=== PATIENT | female | born 1950 | race Caucasian/White ===

== ENCOUNTER 2021-02-15 10:41 | Emergency (ER) | payer OTHER, MEDICARE, SELFPAY ==
[2021-02-15 11:01] VITALS: BP 146/113; PULSE 99; RESP 18; TEMP 35.9; O2SAT 97; BMI 18.9
[2021-02-15 11:05] LABS: Bacteria Urine None Seen; RBC Urine None Seen (0-5/HPF); WBC Urine None Seen (0-5/HPF)
[2021-02-15 11:06] LABS: Appearance Urine UA CLEAR; Bilirubin Urine UA NEGATIVE (NEGATIVE); Color Urine UA YELLOW; Glucose Urine UA NEGATIVE (Negative); Ketones Urine UA TRACE (NEGATIVE); Leukocyte Esterase Urine UA NEGATIVE (NEGATIVE); Nitrite Urine UA NEGATIVE (Negative); Occult Blood Urine UA TRACE-INTACT (Negative); Protein Urine UA NEGATIVE (Negative); Urobilinogen Urine UA 0.2 E.U./dL (0.2)
[2021-02-15 11:12] LABS: Culture Indicated Urine Cult Not Indicated; Urine Comments Microscopic Normal
[2021-02-15 11:30] LABS: Add Manual Diff / Slide Review NO; Basophils Absolute Auto 0 /uL (0-100); Basophils Percent Auto 0.5 % (0-2); Eosinophils Absolute Auto 0 /uL (0-450); Eosinophils Percent Auto 0.5 % (2-4); Hemoglobin 14.2 g/dL (12.0-16.0); Lymphocytes Absolute Auto 1700 /uL (1100-4500); Lymphocytes Percent Auto 22.8 % (25-40); Mean Corpuscular HGB Conc 33.8 % (30-36); Mean Corpuscular Hemoglobin 29.8 PG (26-34); Mean Corpuscular Volume 88.2 fL (80-100); Monocytes Absolute Auto 400 /uL (0-900); Monocytes Percent Auto 5.3 % (3-14); Neutrophils Absolute Auto 5300 /uL (1500-7000); Neutrophils Percent Auto 70.9 % (50-75); Platelet Count 371 X10^3/uL (150-400); Red Blood Cell Count 4.77 X10^6/uL (4.0-5.2); White Blood Cell Count 7.4 X10^3/uL (4.5-11.0)
[2021-02-15 11:32] LABS: Alanine Aminotransferase 19 IU/L (<35); Albumin 4.6 g/dL (3.5-5.0); Albumin Globulin Ratio 1.4 (1.0-2.8); Alkaline Phosphatase 67 U/L (38-126); Aspartate Aminotransferase 23 IU/L (14-36); BUN Creatinine Ratio 16.1 (6-22); Bilirubin Total 0.6 mg/dL (0.2-1.3); Blood Urea Nitrogen 10 mg/dL (7-17); Calcium 9.8 mg/dL (8.4-10.2); Carbon Dioxide 21 mmol/L (22-32); Chloride 105 mmol/L (98-107); Estimated Glomerular Filt Rate > 60.0 mL/min (>60); Globulin 3.3 g/dL (1.7-4.1); Glucose 109 mg/dL (80-110); HEMOLYSIS < 15 (0-50); Lipase 118 U/L (23-300); Potassium 3.9 mmol/L (3.4-5.1); Sodium 137 mmol/L (137-145); Total Protein 7.9 g/dL (6.3-8.2)
--- NOTE | 2021-02-15 14:42 | DI.CT.S_ITS ---
PROCEDURE: CT ABDOMEN PELVIS W CON INDICATIONS: RLQ pain, from waiting room IV contrast only TECHNIQUE: After the administration of intravenous contrast, axial sections acquired from the lung bases to the pubic symphysis. Coronal and sagittal reformats were performed. For radiation dose reduction, the following was used: automated exposure control, adjustment of mA and/or kV according to patient size. COMPARISON: [facility], CT, ABDOMEN/PELVIS WITH CONTRAST, 12/17/2013, 15:40. FINDINGS: Image quality: Excellent. Lung bases: Unremarkable. Heart: No significant findings. ABDOMEN: Liver: Unremarkable. Gallbladder: Unremarkable. Biliary ducts: Unremarkable. Pancreas: Unremarkable. Spleen: Unremarkable. Adrenal Glands: Unremarkable. Kidneys and Ureters: Unremarkable. Stomach and Bowel: Stomach, small bowel loops, and colon are unremarkable. Appendectomy clips. Peritoneum: No abnormal intraperitoneal fluid. No free air. Ventral Wall: No hernias. Abdominal Nodes: No retroperitoneal or mesenteric adenopathy by size criteria. Vessels: Aorta and inferior vena cava are normal in size. PELVIS: Pelvic Organs: Uterus is surgically absent. Bladder: Unremarkable. Pelvic Nodes: No enlarged lymph nodes. Miscellaneous: There is a large multiloculated cystic process filling most of the pelvis with numerous septations which are not completely thin. This confluent cystic septated process measures 10.8 x 11.5 x 14.9 cm. Differential diagnosis includes benign and malignant cystic ovarian masses. Less likely, but possible would be pseudomyxoma peritonei. Bones: No lytic or blastic bony lesions. Lumbar degenerative change. IMPRESSION: 1. Interval development of a large multiloculated cystic/septated process filling most of the pelvis, with a maximum diameter 14.9 cm. Consider benign and malignant cystic ovarian masses. Less likely is pseudomyxoma peritonei. 2. No metastatic lesions. Comment: Recommend RADIATION PROTECTION SPECIALIST consultation. Comment: Findings were discussed with Dr. Webster at the time of study dictation on 02/15/2021 at 1503 hours. Dictated by: Kuldeep Cormier M.D. on 02/15/2021 at 14:56 Approved by: Kuldeep Cormier M.D. on 02/15/2021 at 15:05
--- NOTE | 2021-02-15 15:00 | ED_ITS ---
HPI - Abdominal Pain General Chief Complaint: Abdominal Pain Stated Complaint: pain in abdomen since Sat Time Seen by Provider: 02/15/21 14:48 Source: patient Mode of arrival: Ambulatory Limitations: no limitations History of Present Illness HPI narrative: 70-year-old female comes emergency department with complaint of abdominal pain. Patient states she has had least 2 days of right lower quadrant abdominal pain. She has had a little bit of right flank pain. Patient has not had any fevers. Patient states she would have sort of waves of pain. She would get sweaty and feel very nauseated but did have a lot of active vomiting. She has had some chronic abdominal issues and infections in the past so she thought may be related to that. She has also had some chronic back pain issues so she did appreciate any obvious flank pain. Patient states her pain has since resolved. Not completely but significantly. She took ibuprofen last night as well as a dose of ibuprofen this morning at 6:00 a.m. which was quite helpful both times. Patient has not had any additional pain medications since then. She states she has been stooling regularly. She has not any melena or hematochezia. No dysuria, urgency frequency or hematuria. Patient has had her appendix out about 5 years ago. She denies any daily medications. She is allergic to penicillin and she is accompanied by her . Related Data Previous Rx's Medication Instructions Recorded hydrocodone 5 mg-acetaminophen 325 1 tab PO QID PRN #20 tab 02/15/21 mg tablet Allergies Allergy/AdvReac Type Severity Reaction Status Date / Time Penicillins [PENICILLINS] Allergy Mild Verified 02/15/21 11:05 Review of Systems Review of Systems ROS Unobtainable: All systems reviewed & are unremarkable except as noted in HPI and below Patient History Social History Smoking Status: Never smoker Smoking Status: Never smoker alcohol intake frequency: holidays/special occasions only Substance Use Type: does not use Exam Narrative Exam Narrative: GENERAL: Alert and oriented x three, female in mild distress. HEENT: Head normocephalic, atraumatic, EOMI, pupils reactive, face symmetric, moist mucous membranes NECK: Supple, full range of motion CARDIOVASCULAR: Regular rate and rhythm without murmurs, rubs or gallops. RESPIRATORY: Breath sounds equal bilaterally, no wheezes rales or rhonchi. ABDOMEN: Soft, nontender. Normoactive bowel sounds all 4 quadrants. No guarding or rebound, rigidity, no mass, nondistended. : No CVA tenderness EXTREMITIES: Normal range of motion, no clubbing or edema. Neurovascularly intact NEUROLOGICAL: Cranial nerves II through XII grossly intact. Moving all extremities SKIN: Warm, dry, no petechiae, no rashes or lesions. Initial Vital Signs Initial Vital Signs: Vital Signs Temperature 96.7 F L 02/15/21 11:01 Pulse Rate 99 H 02/15/21 11:01 Respiratory Rate 18 02/15/21 11:01 Blood Pressure 146/113 H 02/15/21 11:01 Pulse Oximetry 97 02/15/21 11:01 Course Orders Ordered: ED Orders 02/15/21 11:00 Urinalysis and Microscopic Stat 02/15/21 11:11 Cancer Antigen 125 Stat Cancer Antigen 19 9 Stat Carcinoembryonic Antigen Stat Complete Blood Count AUTO DIFF Stat Comprehensive Metabolic Panel Stat Lipase Stat 02/15/21 14:42 CT abdomen pelvis w con Stat Consultations Consultation #1: Spoke, with Dr. Haider she recommends referral to his [facility] [place] for referral for likely ovarian cancer if positive for CA 125. It was elevated I did speak with the Gynecology/Oncology Service. They asked for referral which Dr. Haider on recontact is happy to facilitate for the patient. She has also helped happy to help the patient navigate the system if she has any complications with follow-up. Consultation #2: Spoke with Dr. Massey at [facility]. Reviewed CT findings today as well as CA 125. She asked for a CEA and CA 19 9. She feels patient is appropriate to follow up urgently with them as an outpatient. Give contact information to set up referral. She also took patient's contact information for them to reach out to her. Vital Signs Vital signs: Vital Signs - 8 hr 02/15/21 16:33 Pulse Rate 89 Respiratory Rate 16 Blood Pressure 161/71 H Pulse Oximetry 97 MDM - Abdominal Pain Lab Data Result diagrams: 02/15/21 11:11 02/15/21 11:11 Labs: Lab Results 02/15/21 02/15/21 02/15/21 Range/Units 11:00 11:11 11:11 WBC 7.4 (4.5-11.0) X10^3/uL RBC 4.77 (4.0-5.2) X10^6/uL Hgb 14.2 (12.0-16.0) g/dL Hct 42.0 (36-46) % MCV 88.2 (80-100) fL MCH 29.8 (26-34) PG MCHC 33.8 (30-36) % RDW 13.0 (11.6-14.8) % Plt Count 371 (150-400) X10^3/uL Neut % (Auto) 70.9 (50-75) % Lymph % (Auto) 22.8 L (25-40) % [place] % (Auto) 5.3 (3-14) % Eos % (Auto) 0.5 L (2-4) % Baso % (Auto) 0.5 (0-2) % Neut # (Auto) 5300 (3915-7889) /uL Lymph # (Auto) 1700 (2127-5146) /uL [place] # (Auto) 400 (0-900) /uL Eos # (Auto) 0 (0-450) /uL Baso # (Auto) 0 (0-100) /uL Sodium 137 (137-145) mmol/L Potassium 3.9 (3.4-5.1) mmol/L Chloride 105 (98-107) mmol/L Carbon Dioxide 21 L (22-32) mmol/L BUN 10 (7-17) mg/dL Creatinine 0.62 (0.52-1.04) mg/dL Estimated GFR > 60.0 (>60) mL/min BUN/Creatinine Ratio 16.1 (6-22) Glucose 109 (80-110) mg/dL Calcium 9.8 (8.4-10.2) mg/dL Total Bilirubin 0.6 (0.2-1.3) mg/dL AST 23 (14-36) IU/L ALT 19 (<35) IU/L Alkaline Phosphatase 67 (38-126) U/L Total Protein 7.9 (6.3-8.2) g/dL Albumin 4.6 (3.5-5.0) g/dL Globulin 3.3 (1.7-4.1) g/dL Albumin/Globulin Ratio 1.4 (1.0-2.8) Lipase 118 (23-300) U/L Carcinoembryonic Ag (0.1-3.0) ng/mL CA 125 Antigen (0-35) U/mL Urine Color Yellow Urine Appearance Clear Urine pH 7.0 (4.5-8.0) Ur Specific [place] 1.010 (1.000-1.035) Urine Protein Negative (Negative) Urine Glucose (UA) Negative (Negative) g/dL Urine Ketones Trace H (NEGATIVE) Urine Occult Blood Trace-intact (Negative) Urine Nitrate Negative (Negative) Urine Bilirubin Negative (NEGATIVE) Urine Urobilinogen 0.2 (0.2) E.U./dL Ur Leukocyte Esterase Negative (NEGATIVE) Urine RBC None seen (0-5/HPF) Urine WBC None seen (0-5/HPF) Urine Bacteria None seen (None) Ur Culture Indicated? Cult not indicated Micro UA Comment Microscopic normal 02/15/21 02/15/21 Range/Units 11:11 11:11 WBC (4.5-11.0) X10^3/uL RBC (4.0-5.2) X10^6/uL Hgb (12.0-16.0) g/dL Hct (36-46) % MCV (80-100) fL MCH (26-34) PG MCHC (30-36) % RDW (11.6-14.8) % Plt Count (150-400) X10^3/uL Neut % (Auto) (50-75) % Lymph % (Auto) (25-40) % [place] % (Auto) (3-14) % Eos % (Auto) (2-4) % Baso % (Auto) (0-2) % Neut # (Auto) (7050-3757) /uL Lymph # (Auto) (8059-5129) /uL [place] # (Auto) (0-900) /uL Eos # (Auto) (0-450) /uL Baso # (Auto) (0-100) /uL Sodium (137-145) mmol/L Potassium (3.4-5.1) mmol/L Chloride (98-107) mmol/L Carbon Dioxide (22-32) mmol/L BUN (7-17) mg/dL Creatinine (0.52-1.04) mg/dL Estimated GFR (>60) mL/min BUN/Creatinine Ratio (6-22) Glucose (80-110) mg/dL Calcium (8.4-10.2) mg/dL Total Bilirubin (0.2-1.3) mg/dL AST (14-36) IU/L ALT (<35) IU/L Alkaline Phosphatase (38-126) U/L Total Protein (6.3-8.2) g/dL Albumin (3.5-5.0) g/dL Globulin (1.7-4.1) g/dL Albumin/Globulin Ratio (1.0-2.8) Lipase (23-300) U/L Carcinoembryonic Ag 2.1 (0.1-3.0) ng/mL CA 125 Antigen 873 H (0-35) U/mL Urine Color Urine Appearance Urine pH (4.5-8.0) Ur Specific [place] (1.000-1.035) Urine Protein (Negative) Urine Glucose (UA) (Negative) g/dL Urine Ketones (NEGATIVE) Urine Occult Blood (Negative) Urine Nitrate (Negative) Urine Bilirubin (NEGATIVE) Urine Urobilinogen (0.2) E.U./dL Ur Leukocyte Esterase (NEGATIVE) Urine RBC (0-5/HPF) Urine WBC (0-5/HPF) Urine Bacteria (None) Ur Culture Indicated? Micro UA Comment Imaging Data CT scan - abdomen/pelvis: Radiologist's Impression: [address] [id number] Scan ReportSigned Patient: Ade Teixeira [facility]#: [id number]: 2Acct:[id number]/Sex: 70 / FDate of Service: 02/15/21Loc: EDAccession Number: [id number] Procedure: CT abdomen pelvis w con Ordering Provider: Carito Webster D.O. PROCEDURE: CT ABDOMEN PELVIS W CON INDICATIONS: RLQ pain, from waiting room IV contrast only TECHNIQUE: After the administration of intravenous contrast, axial sections acquired from the lung bases to the pubic symphysis. Coronal and sagittal reformats were performed. For radiation dose reduction, the following was used: automated exposure control, adjustment of mA and/or kV according to patient size. COMPARISON: [facility], CT, ABDOMEN/PELVIS WITH CONTRAST, 12/17/2013, 15:40. FINDINGS: Image quality: Excellent. Lung bases: Unremarkable. Heart: No significant findings. ABDOMEN: Liver: Unremarkable. Gallbladder: Unremarkable. Biliary ducts: Unremarkable. Pancreas: Unremarkable. Spleen: Unremarkable. Adrenal Glands: Unremarkable. Kidneys and Ureters: Unremarkable. Stomach and Bowel: Stomach, small bowel loops, and colon are unremarkable. Appendectomy clips. Peritoneum: No abnormal intraperitoneal fluid. No free air. Ventral Wall: No hernias. Abdominal Nodes: No retroperitoneal or mesenteric adenopathy by size criteria. Vessels: Aorta and inferior vena cava are normal in size. PELVIS: Pelvic Organs: Uterus is surgically absent. Bladder: Unremarkable. Pelvic Nodes: No enlarged lymph nodes. Miscellaneous: There is a large multiloculated cystic process filling most of the pelvis with numerous septations which are not completely thin. This confluent cystic septated process measures 10.8 x 11.5 x 14.9 cm. Differential diagnosis includes benign and malignant cystic ovarian masses. Less likely, but possible would be pseudomyxoma peritonei. Bones: No lytic or blastic bony lesions. Lumbar degenerative change. IMPRESSION: 1. Interval development of a large multiloculated cystic/septated process filling most of the pelvis, with a maximum diameter 14.9 cm. Consider benign and malignant cystic ovarian masses. Less likely is pseudomyxoma peritonei. 2. No metastatic lesions. Comment: Recommend CUTTING ROOM SUPERVISOR consultation. Comment: Findings were discussed with Dr. Webster at the time of study dictation on 02/15/2021 at 1503 hours. Dictated by: Kuldeep Cormier M.D. on 02/15/2021 at 14:56 Approved by: Kuldeep Cormier M.D. on 02/15/2021 at 15:05 [facility] Narrative Medical decision making narrative: This is a 70-year-old female comes emergency department complaint of abdominal pain for the last 2 days. Patient states it has since improved. She has had some chronic abdominal issues in the past. Her labs and urine are reassuring. CT abdomen with pelvis was obtained with concern for possible kidney stone as she had also had some vein plain radiating to her right anterior abdomen. She has had an appendectomy. CT shows a very large pelvic mass and results were called to myself by Radiology. Findings are concerning for possible ovarian cancer. Discussed with Collection Correspondent and referred to [facility] at [place]. CA 125 is elevated. CEA and CA 19 9 were added on to blood work in the lab to help with further evaluation. Patient is to follow up outpatient urgently and Dr. Haider our local dross skimmer will help facilitate and send referral. Dr. Massey at [place] is happy to see the patient shortly and took the patient's phone number to reach out to them as well. All questions were answered. Patient is easily pain controlled here without any intervention but was offered a prescription of narcotic pain medication in case she has worsening symptoms. Return precautions discussed. Discharge Plan Departure Patient Disposition: Home Clinical Impression: Pelvic mass in female, Abdominal pain Activity Restrictions/Additional Instructions: You have a large pelvic mass on your CT imaging today. One of your markers here to today is elevated it is called a CA 125. I discussed this with Dr. Massey with the Gynecology/Oncology Service at [place]. She has asked us to add on 2 additional markers to help clarify your current medical situation. She would like to have you seen with their office urgently as an outpatient. Call Dr. Massey's office tomorrow to set up follow up. If you have any difficulty setting up follow-up you may contact Dr. Haider's office out local script supervisor service to help facilate follow up. You may continue ibuprofen up to 600 mg every 6 hours as needed for pain. You may also had Tylenol up to a 1000 mg every 8 hours as needed. If this is an adequate you may take pain medication as prescribed. This medication can make you sleepy do not drive, perform hazardous activities or make any major decisions while taking it. This medication will make you constipated please take a stool softener once to twice daily until stools are soft and regular. I would recommend taking a stool softener such as Colace once daily until stools are soft and regular. Please return for fevers, new or worsening abdominal pain, vomiting, if you are unable to have bowel movements or passing gas, for having worsening symptoms, lightheadedness or passing out or other new or concerning symptoms. Prescriptions: New hydrocodone-acetaminophen 5-325 mg tablet 1 tab PO QID PRN (Reason: pain) Qty: 20 RF: 0 Referrals: Nova Massey MD [Non-Staff] - Pat Bennett MD [Primary Care Provider] - Maryanne Haider MD [Physician] -
[2021-02-15 16:11] LABS: Cancer Antigen 125 873 U/mL (0-35)
[2021-02-15 16:33] VITALS: BP 161/71; PULSE 89; RESP 16; O2SAT 97
[2021-02-15 17:51] LABS: Carcinoembryonic Antigen 2.1 ng/mL (0.1-3.0)
[2021-02-16 06:09] LABS: Cancer (Carbohydrate) Ag 19-9 13 U/mL (0-35)
== END 2021-02-15 17:53 | disposition home or self-care (01) ==
PROVIDERS: Emergency Provider Emergency Medicine; PCP Family Medicine
DX: R19.00 Intra-abdominal and pelvic swelling, mass and lump, unspecified site (principal); R10.31 Right lower quadrant pain; R11.2 Nausea with vomiting, unspecified
CPT/HCPCS: 36415; 74177; 80053; 81001; 82378; 83690; 85025; 86301; 86304; 99284; Q9967

== ENCOUNTER → 2022-05-16 09:27 | Outpatient (CLI) | payer OTHER, MEDICARE, SELFPAY ==
[2022-05-16 19:27] LABS: Add Manual Diff / Slide Review NO; BUN Creatinine Ratio 23.3 (6-22); Basophils Absolute Auto 0 /uL (0-100); Basophils Percent Auto 0.6 % (0-2); Blood Urea Nitrogen 17 mg/dL (7-17); Calcium 9.2 mg/dL (8.4-10.2); Carbon Dioxide 29 mmol/L (22-32); Cholesterol 277 mg/dL (140-199); Eosinophils Absolute Auto 100 /uL (0-450); Eosinophils Percent Auto 2.5 % (2-4); Estimated Glomerular Filt Rate > 60 mL/min (>60); Glucose 98 mg/dL (80-110); HDL Cholesterol 56 mg/dL (40-60); HEMOLYSIS < 15 (0-50); Hemoglobin 13.8 g/dL (12.0-16.0); LDL Cholesterol Calculated 197 mg/dL (<100); Lymphocytes Absolute Auto 2100 /uL (1100-4500); Lymphocytes Percent Auto 40.9 % (25-40); Mean Corpuscular HGB Conc 33.8 % (30-36); Mean Corpuscular Hemoglobin 29.7 PG (26-34); Mean Corpuscular Volume 87.9 fL (80-100); Monocytes Absolute Auto 400 /uL (0-900); Monocytes Percent Auto 7.1 % (3-14); Neutrophils Absolute Auto 2600 /uL (1500-7000); Neutrophils Percent Auto 48.9 % (50-75); Platelet Count 326 X10^3/uL (150-400); Red Blood Cell Count 4.66 X10^6/uL (4.0-5.2); Red Cell Distribution Width 13.6 % (11.6-14.8); Triglycerides 119 mg/dL (35-150); White Blood Cell Count 5.2 X10^3/uL (4.5-11.0)
[2022-05-16 19:45] LABS: Chloride 102 mmol/L (98-107); Sodium 139 mmol/L (137-145)
[2022-05-16 19:48] LABS: Potassium 4.2 mmol/L (3.4-5.1)
== END ==
PROVIDERS: PCP Family Medicine; Visit Provider Family Medicine
DX: Z11.59 Encounter for screening for other viral diseases (principal); Z13.1 Encounter for screening for diabetes mellitus; Z13.220 Encounter for screening for lipoid disorders; Z13.6 Encounter for screening for cardiovascular disorders
CPT/HCPCS: 80048; 80061; 85025

== ENCOUNTER → 2024-03-26 10:03 | Outpatient (CLI) | payer OTHER, MEDICARE, SELFPAY ==
[2024-03-26 19:37] LABS: Add Manual Diff / Slide Review NO; Basophils Absolute Auto 0 /uL (0-100); Basophils Percent Auto 0.6 % (0-2); Eosinophils Absolute Auto 100 /uL (0-450); Eosinophils Percent Auto 1.3 % (2-4); Hematocrit 40.4 % (36-46); Hemoglobin 13.8 g/dL (12.0-16.0); Lymphocytes Absolute Auto 1900 /uL (1100-4500); Lymphocytes Percent Auto 34.2 % (25-40); Mean Corpuscular HGB Conc 34.1 % (30-36); Mean Corpuscular Hemoglobin 31.1 PG (26-34); Monocytes Absolute Auto 400 /uL (0-900); Monocytes Percent Auto 7.1 % (3-14); Neutrophils Absolute Auto 3100 /uL (1500-7000); Neutrophils Percent Auto 56.8 % (50-75); Platelet Count 360 X10^3/uL (150-400); Red Blood Cell Count 4.44 X10^6/uL (4.0-5.2); Red Cell Distribution Width 13.6 % (11.6-14.8); White Blood Cell Count 5.5 X10^3/uL (4.5-11.0)
[2024-03-26 19:43] LABS: Alanine Aminotransferase 16 IU/L (<35); Albumin 4.2 g/dL (3.5-5.0); Albumin Globulin Ratio 1.5 (1.0-2.8); Alkaline Phosphatase 49 U/L (38-126); Aspartate Aminotransferase 21 IU/L (14-36); BUN Creatinine Ratio 26.1 (6-22); Bilirubin Total 0.6 mg/dL (0.2-1.3); Blood Urea Nitrogen 18 mg/dL (7-17); Calcium 9.5 mg/dL (8.4-10.2); Carbon Dioxide 26 mmol/L (22-32); Chloride 102 mmol/L (98-107); Estimated Glomerular Filt Rate > 60 mL/min (>60); Globulin 2.8 g/dL (1.7-4.1); Glucose 105 mg/dL (80-110); HDL Cholesterol 55 mg/dL (40-60); HEMOLYSIS < 15 (0-50); Sodium 135 mmol/L (137-145); Triglycerides 118 mg/dL (35-150)
[2024-03-26 19:51] LABS: Cholesterol 355 mg/dL (140-199); LDL Cholesterol Calculated 276 mg/dL (<100)
[2024-03-26 20:12] LABS: TSH w/ Reflex to FT4 0.83 uIU/mL (0.47-4.68)
[2024-03-26 20:30] LABS: Appearance Urine UA CLEAR; Bilirubin Urine UA NEGATIVE (NEGATIVE); Color Urine UA YELLOW; Glucose Urine UA NEGATIVE (Negative); Ketones Urine UA TRACE (NEGATIVE); Leukocyte Esterase Urine UA NEGATIVE (NEGATIVE); Nitrite Urine UA NEGATIVE (Negative); Occult Blood Urine UA NEGATIVE (Negative); Protein Urine UA NEGATIVE (Negative); Urobilinogen Urine UA 0.2 E.U./dL (0.2)
[2024-03-26 20:48] LABS: Bacteria Urine Occasional (0-1); Culture Indicated Urine Cult Not Indicated; RBC Urine 0-1/HPF (0-5/HPF); Squamous Epithelial Cell Urine None Seen (0-5/HPF); Urine Volume 10mL (spun); WBC Urine None Seen (0-5/HPF)
[2024-03-28 21:50] LABS: Hep C Virus Ab w/Reflex Quant NEGATIVE s/c (NEGATIVE)
== END ==
PROVIDERS: PCP Family Medicine; Visit Provider Physician Assistant
DX: R53.81 Other malaise (principal); Z13.6 Encounter for screening for cardiovascular disorders; F41.9 Anxiety disorder, unspecified; Z11.59 Encounter for screening for other viral diseases
CPT/HCPCS: 80053; 80061; 81001; 84443; 85025; 86803

== ENCOUNTER → 2025-05-19 12:00 | Outpatient (CLI) | payer OTHER, MEDICARE, SELFPAY ==
[2025-05-19 18:50] LABS: Add Manual Diff / Slide Review NO; Hematocrit 39.7 % (36-46); Hemoglobin 13.7 g/dL (12.0-16.0); Lymphocytes Absolute Auto 2100 /uL (1100-4500); Mean Corpuscular HGB Conc 34.5 % (30-36); Mean Corpuscular Hemoglobin 30.8 PG (26-34); Mean Corpuscular Volume 89.3 fL (80-100); Platelet Count 377 X10^3/uL (150-400)
== END ==
PROVIDERS: PCP Family Medicine; Visit Provider Physician Assistant
DX: R19.5 Other fecal abnormalities (principal); R10.9 Unspecified abdominal pain
CPT/HCPCS: 85025